=== PATIENT | female | born 1995 | race Caucasian/White ===

== ENCOUNTER 2022-06-28 17:01 | Outpatient (CLI) | payer BC ==
[2022-06-28 18:00] LABS: Appearance,Urine Clear (Clear); Bilirubin,Urine Negative (Negative); Blood,Urine Negative (Negative); Color,Urine Colorless; Glucose,Urine (UA) Negative (Negative); Ketones,Urine Negative (Negative); Leukocyte Esterase,Urine Negative (Negative); Nitrite,Urine Negative (Negative); PH, Urine 6.5 (5.0-8.0); Protein,Urine Negative (Negative); Specific Gravity,Urine 1.007 (1.001-1.035); Urobilinogen,Urine <2.0 mg/dL (<2.0)
[2022-06-28 18:37] VITALS: BP 119/56; PULSE 82; RESP 17; TEMP 97.5
--- NOTE | 2022-06-29 03:31 | P.MSEPDOC ---
Presenting Problems - Arrival Data Date of Arrival on Unit: 06/28/22 Time of Arrival on Unit: 17:02 Mode of Transport: Ambulatory - Complaint OB-Reason for Admission/Chief Complaint: Pain Comment: Pt presents to triage with c/o lower back pain that started around 0800 this morning. Pt rating pain 10 out of 10 and states it is hard to walk Medical History - Information : 1 Para: 0 Term: 0 : 0 Abortions: Spontaneous or Elective: 0 Number of Living Children: 0 - Gestational Age Gestational Age by PRABHA (wks/days): 29 Weeks and 0 Days Review of Systems - Review of Systems Constitutional: No problems Breast: No problems ENT: No problems Cardiovascular: No problems Respiratory: No problems Gastrointestinal: No problems Genitourinary: No problems Musculoskeletal: No problems Neurological: No problems Skin: No problems Vital Signs - Temperature Temperature: 97.5 F Temperature Source: Temporal Artery Scan - Pulse Pulse Oximetery Pulse Rate: 82 Pulse Assessment Method: Pulse Oximetry - Respirations Respiratory Rate: 17 Oxygen Delivery Method: Room Air O2 Sat by Pulse Oximetry: 98 - Blood Pressure Right Arm Blood Pressure: 119/56 Blood Pressure Mean: 77 Blood Pressure Source: Automatic Cuff Medical Screen Scoring - Cervical Exam Membranes: Intact - Assessment - Baby A Baseline FHR: 150 Heart Rate - NICHD Category: Category I (Normal) NST: Reactive Physician Notification - Physician Notified Physician Notified Date: 06/28/22 Physician Notified Time: 17:24 Physician: Lucas Oneal - Notification Comment Comment: At 1724, Dr. Oneal on unit with order to send a urinalysis on pt. RN to call Dr. Oneal with results. At 1817, RN reported urinalysis results. Per Dr. Oneal RN to discharge pt home with instructions to take tylenol as needed and to follow up with Dr. Kyle as scheduled. Maternal Triage Index - Maternal Triage Index Presenting for scheduled procedure w/no complaint: No - Stat/Priority 1 Stat Priority 1: No - Urgent/Priority 2 Urgent Priority 2: No - Prompt/Priority 3 Prompt Priority 3: No - Non-Urgent/Priority 4 Non-Urgent Priority 4: Yes Criteria Met for Priority 4: Pt presents to triage with c/o lower back pain that started around 0800 this morning. Pt rating pain 10 out of 10 and states it is hard to walk Disposition - Disposition OB Disposition: Discharge to home, Written follow up instructions reviewed Discharge Date: 06/28/22 Discharge Time: 18:23 I agree with the RN Medical Screening Exam: Yes Case reviewed; plan agreed upon as documented in EMR&OBIX.: Yes Diagnosis: RELATED CONDITIONS, UNSPECIFIED, THIRD TRIMESTER
== END 2022-06-28 18:23 | disposition home or self-care (01) ==
LOC: FBPOP 17:01
PROVIDERS: ATTEND Obstetrics & Gynecology
DX: O26.93 Pregnancy related conditions, unspecified, third trimester (principal); Z3A.29 29 weeks gestation of pregnancy; Z91.09 Other allergy status, other than to drugs and biological substances; Z91.048 Other nonmedicinal substance allergy status
CPT/HCPCS: 59025; 81003; 99213

== ENCOUNTER 2022-08-26 10:29 | Outpatient (CLI) | payer BC ==
[2022-08-26 11:36] VITALS: BP 136/72; PULSE 103; RESP 18; TEMP 98.1
--- NOTE | 2022-08-27 07:19 | P.MSEPDOC ---
Presenting Problems - Arrival Data Date of Arrival on Unit: 08/26/22 Time of Arrival on Unit: 10:29 Mode of Transport: Ambulatory - Complaint OB-Reason for Admission/Chief Complaint: Decreased Movement Comment: pt presents to triage for decreased movement Medical History - Information : 1 Para: 0 Term: 0 : 0 Abortions: Spontaneous or Elective: 0 Number of Living Children: 0 - Gestational Age Gestational Age by PRABHA (wks/days): 37 Weeks and 3 Days - History Comment: pt reports she has asymetrical growth restriction with , has another ultrasound on Monday, has weekly NST's performed Review of Systems - Review of Systems Constitutional: No problems Breast: No problems ENT: No problems Cardiovascular: No problems Respiratory: No problems Gastrointestinal: No problems Genitourinary: No problems Musculoskeletal: No problems Neurological: No problems Skin: No problems Vital Signs - Temperature Temperature: 98.1 F Temperature Source: Temporal Artery Scan - Pulse Right Brachial Pulse Rate: 103 - Respirations Respiratory Rate: 18 Oxygen Delivery Method: Room Air O2 Sat by Pulse Oximetry: 100 - Blood Pressure Right Arm Blood Pressure: 136/72 Blood Pressure Mean: 93 Blood Pressure Source: Automatic Cuff Medical Screen Scoring - Uterine Contractions Intensity: Mild Resting: Soft to palpation - Assessment - Baby A Baseline FHR: 140 Heart Rate - NICHD Category: Category I (Normal) NST: Reactive Physician Notification - Physician Notified Physician Notified Date: 08/26/22 Physician Notified Time: 11:08 Physician: Lucas Oneal Order Received: Yes - Notification Comment Comment: reactive nst, pt feeling movement since arrival in triage, has scheduled appt on 09/[address] Kyle Maternal Triage Index - Maternal Triage Index Presenting for scheduled procedure w/no complaint: No - Stat/Priority 1 Stat Priority 1: No - Urgent/Priority 2 Urgent Priority 2: No - Prompt/Priority 3 Prompt Priority 3: Yes Criteria Met for Priority 3: pt reports she has asymetrical growth restriction with , has another ultrasound on Monday, has weekly NST's performed - Non-Urgent/Priority 4 Non-Urgent Priority 4: Yes Criteria Met for Priority 4: na Disposition - Disposition OB Disposition: Triage, Discharge to home, Written follow up instructions reviewed Discharge Date: 08/26/22 Discharge Time: 11:25 I agree with the RN Medical Screening Exam: Yes Case reviewed; plan agreed upon as documented in EMR&OBIX.: Yes Diagnosis: DECREASED MOVEMENTS, THIRD TRIMESTER, FETUS 1 (Patient presented to labor and delivery with complaints of decreased movement. heart tones are category 1 without decelerations. Patient reports that she is now having active movement. At this time there is no evidence of maternal or compromise and therefore discharge home follow up with Dr. Braun as scheduled)
== END 2022-08-26 11:25 | disposition home or self-care (01) ==
LOC: FBPOP 10:29
PROVIDERS: ATTEND Obstetrics & Gynecology
DX: O36.8131 Decreased fetal movements, third trimester, fetus 1 (principal); Z3A.37 37 weeks gestation of pregnancy; Z91.048 Other nonmedicinal substance allergy status; Z91.09 Other allergy status, other than to drugs and biological substances
CPT/HCPCS: 59025; 99213

== ENCOUNTER 2022-09-11 17:00 | Inpatient (IN) | payer BC ==
[2022-09-12] MEDS ORDERED: TRANEXAMIC ACID IN NACL,ISO-OS 1,000 MG in EMPTY BAG 1 BAG IV PRN (06:14)
[2022-09-12] MEDS ORDERED: miSOPROStoL 200 MCG TAB PO PRN (06:14)
[2022-09-12] MEDS ORDERED: CARBOPROST TROMETHAMINE 250 MCG/ML 1 ML AMP IM PRN (06:14)
[2022-09-12] MEDS ORDERED: LIDOCAINE 0.5% (PF) 5 MG/ML (50 ML SDV) SQ PRN (06:14)
[2022-09-12] MEDS ORDERED: OXYTOCIN 30 UNITS/500 ML NS 30 UNIT in SALINE 1 500ML.BAG IV SCH ×2 (06:14→19:30)
[2022-09-12] MEDS ORDERED: METHYLERGONOVINE 0.2 MG/ML 1 ML AMP IM PRN (06:14)
[2022-09-12] MEDS ORDERED: OXYTOCIN 10 UNIT/ML 1 ML VIAL IM PRN (06:14)
[2022-09-12] MEDS ORDERED: TERBUTALINE 1 MG/ML VIAL SQ PRN (06:14)
[2022-09-12] MEDS: LACTATED RINGERS 1,000 ML IV SCH ×3 (06:30→13:55)
[2022-09-12 06:57] LABS: Basophils % (A) 0 %; Eosinophils # (A) 0.1 k/uL (0-0.7); Eosinophils % (A) 1 %; HCT 32.6 % (34.0-46.0); HGB 10.6 gm/dL (11.4-16.0); Lymphocytes # (A) 1.6 k/uL (1.0-4.8); Lymphocytes % (A) 17 %; MCH 26.5 pg (25.0-35.0); MCHC 32.6 g/dL (31.0-37.0); MCV 81.3 fL (80.0-100.0); Mean Platelet Volume 9.3; Monocytes # (A) 0.6 k/uL (0-1.0); Monocytes % (A) 6 %; Neutrophils # (A) 7.1 k/uL (1.3-7.7); Neutrophils % (A) 74 %; Platelet Count 155 k/uL (150-450); RBC 4.01 m/uL (3.80-5.40); WBC 9.5 k/uL (3.8-10.6)
--- NOTE | 2022-09-12 08:38 | P.HPOB ---
History of Present Illness H&P Date: 09/12/22 Chief Complaint: induction of labor 26-year-old at 38 and 6 presents for induction of labor. Her cervix is 1 cm dilated, 80% effaced, -2 station. She is troy irregularly. heart tones 135 with moderate variability and reactive. During the the had been Located by intrauterine growth restriction. Review of Systems All systems: negative Constitutional: Denies chills, Denies fever Eyes: denies blurred vision, denies pain Ears, nose, mouth and throat: Denies headache, Denies sore throat Cardiovascular: Denies chest pain, Denies shortness of breath Respiratory: Denies cough Gastrointestinal: Denies abdominal pain, Denies diarrhea, Denies nausea, Denies vomiting Genitourinary: Denies dysuria, Denies hematuria Musculoskeletal: Denies myalgias Integumentary: Denies pruritus, Denies rash Neurological: Denies numbness, Denies weakness Psychiatric: Denies anxiety, Denies depression Endocrine: Denies fatigue, Denies weight change Past Medical History Past Medical History: No Reported History History of Any Multi-Drug Resistant Organisms: None Reported Past Anesthesia/Blood Transfusion Reactions: No Reported Reaction Past Psychological History: No Psychological Hx Reported Smoking Status: Never smoker Medications and Allergies Home Medications Medication Instructions Recorded Confirmed Type Vit No.179/Iron/Folic 1 each PO 09/12/22 History [ Tablet] Allergies Allergy/AdvReac Type Severity Reaction Status Date / Time dog dander Allergy Mild Wheezing Verified 09/12/22 06:08 nickel Allergy Mild Rash/Hives Verified 09/12/22 06:08 Exam Osteopathic Statement: *. No significant issues noted on an osteopathic structural exam other than those noted in the History and Physical/Consult. Vital Signs Temp Pulse Resp BP Pulse Ox 09/12/22 06:04 97.4 F L 97 15 134/71 98 Intake and Output 09/11/22 09/12/22 09/12/22 22:59 06:59 14:59 Other: Weight 83.915 kg Heart: Regular rate and rhythm Lungs: Clear to auscultation bilaterally Abdomen: Soft, nontender Extremities: Negative Homans sign Results Result Diagrams: 09/12/22 06:42 Abnormal Lab Results - Last 24 Hours (Table) 09/12/22 Range/Units 06:42 Hgb 10.6 L (11.4-16.0) gm/dL Hct 32.6 L (34.0-46.0) % Assessment and Plan (1) Encounter for induction of labor Current Visit: Yes Status: Acute Code(s): Z34.90 - ENCNTR FOR SUPRVSN OF NORMAL , UNSP, UNSP TRIMESTER SNOMED Code(s): 958590632 Plan: 1. Induction of labor with amniotomy and Pitocin 2. Anticipate normal vaginal delivery.
[2022-09-12] MEDS ORDERED: ROPIVACAINE 5 MG/ML 20 ML AMPULE ONE (13:05)
[2022-09-12] MEDS ORDERED: SODIUM CHLORIDE 0.9% 100 ML BAG ONE (13:05)
[2022-09-12] MEDS ORDERED: fentaNYL (PF) 50 MCG/ML 5 ML AMP ONE (13:05)
[2022-09-12] MEDS ORDERED: PHENYLEPHRINE-0.9% NACL SYG 1,000 MCG/10 ML SYRINGE ONE (13:05)
[2022-09-12 19:14] VITALS: RESP 16
[2022-09-12] MEDS ORDERED: diphenhydrAMINE 25 MG CAP PO PRN (19:22)
[2022-09-12] MEDS ORDERED: ACETAMINOPHEN TAB 325 MG TAB PO PRN (19:22)
[2022-09-12] MEDS ORDERED: diphenhydrAMINE 50 MG/ML 1 ML VIAL IVP PRN ×2 (19:22)
[2022-09-12] MEDS ORDERED: BENZOCAINE/MENTHOL SPRAY 1 GM/SPRAY AEROSOL TOPICAL PRN (19:22)
[2022-09-12] MEDS ORDERED: ZOLPIDEM 5 MG TAB PO PRN (19:22)
[2022-09-12] MEDS ORDERED: diphenhydrAMINE 50 MG CAP PO PRN (19:22)
[2022-09-12] MEDS ORDERED: SIMETHICONE 80 MG CHEWABLE PO PRN (19:22)
[2022-09-12] MEDS ORDERED: HYDROCORTISONE 2.5% RECTAL CREAM 30 GM TUBE RECTAL PRN (19:22)
[2022-09-12] MEDS ORDERED: LANOLIN CREAM 5 GM TUBE TOPICAL PRN (19:22)
--- NOTE | 2022-09-12 19:26 | P.PROBDLV ---
Vaginal Delivery Note - . Vaginal Delivery Note: 26-year-old at 38 and 6 presents for induction of labor. Her cervix is 1 cm dilated, 80% effaced, -2 station. She is troy irregularly. heart tones 135 with moderate variability and reactive. The had been Complicated by intrauterine growth restriction though the most recent US showed 25%ile. Pitocin augmentation was started and amniotomy performed at 7:21 AM and clear fluid noted. When she was uncomfortable she first tried nitrous oxide which didn't work for her very well and then she got an epidural. Her cervix was completely dilated by 170. She pushed, delivered a viable female infant over intact perineum under epidural anesthesia at 1814. Head delivered OA, nuchal cord 1 easily reduced, anterior shoulder delivered gentle downward guidance for by posterior shoulder and rest of body. Nose mouth bulb suctioned, thick and cut, placed mother's abdomen. Apgars 9, 9, weight 7 pounds. Placenta delivered spontaneously, intact with three-vessel cord at 181. Vagina, cervix, and perineum were inspected. Periurethral laceration and a first-degree midline laceration repaired with 3-0 Vicryl. Estimated blood loss 100 mL. Mother and baby in stable condition.
[2022-09-12] MEDS: SENNOSIDES-DOCUSATE SODIUM 1 EACH TAB PO SCH (20:09)
[2022-09-12] MEDS: IBUPROFEN 600 MG TAB PO PRN (21:12)
[2022-09-13] MEDS: IBUPROFEN 600 MG TAB PO PRN ×2 (04:15→15:35)
[2022-09-13 06:41] LABS: Basophils % (A) 0 %; Eosinophils # (A) 0.1 k/uL (0-0.7); Eosinophils % (A) 1 %; HCT 26.8 % (34.0-46.0); Lymphocytes # (A) 1.6 k/uL (1.0-4.8); Lymphocytes % (A) 13 %; MCH 26.7 pg (25.0-35.0); MCHC 32.8 g/dL (31.0-37.0); MCV 81.4 fL (80.0-100.0); Mean Platelet Volume 9.9; Monocytes # (A) 0.7 k/uL (0-1.0); Monocytes % (A) 6 %; Neutrophils # (A) 10.2 k/uL (1.3-7.7); Neutrophils % (A) 80 %; Platelet Count 133 k/uL (150-450); RBC 3.29 m/uL (3.80-5.40); RDW 14.1 % (11.5-15.5); WBC 12.8 k/uL (3.8-10.6)
[2022-09-13 06:49] LABS: HGB 8.8 gm/dL (11.4-16.0)
--- NOTE | 2022-09-13 08:14 | P.DS ---
Providers Date of admission: 09/12/22 05:54 Expected date of discharge: 09/13/22 Attending physician: Maria Elena Kyle Primary care physician: Stated None - Discharge Diagnosis(es) (1) Encounter for induction of labor Current Visit: Yes Status: Resolved (2) Normal vaginal delivery Current Visit: Yes Status: Acute Hospital Course: Patient presented for induction of labor. She underwent a normal vaginal delivery. course was uneventful. She denies nausea, vomiting, chest pain, shortness of breath or any calf pain. Her lochia is minimal and she is involuting voiding without difficulty. Patient will be discharged home day #1 in stable condition to follow-up with me in 3 weeks. Plan - Discharge Summary New Discharge Prescriptions: New RX: Ibuprofen [Motrin] 600 mg PO Q6HR PRN #30 tab PRN Reason: Mild Pain (Scale 1 To 3) No Action Vit No.179/Iron/Folic [ Tablet] 1 each PO Discharge Medication List Vit No.179/Iron/Folic [ Tablet] 1 each PO 09/12/22 [History] RX: Ibuprofen [Motrin] 600 mg PO Q6HR PRN #30 tab 09/13/22 [Rx] Follow up Appointment(s)/Referral(s): Maria Elena Kyle DO [Doctor of Osteopathic Medicine] - 10/26/22 3:45 pm Discharge Disposition: HOME SELF-CARE
[2022-09-13] MEDS: SENNOSIDES-DOCUSATE SODIUM 1 EACH TAB PO SCH (08:17)
[2022-09-13 15:25] VITALS: BP 109/70; PULSE 94; TEMP 98.3
== END 2022-09-13 19:55 | disposition home or self-care (01) | DRG 807 ==
LOC: 4FBP 09-12 05:54
PROVIDERS: ADMIT Obstetrics & Gynecology; ATTEND Obstetrics & Gynecology
PROC: 10E0XZZ Delivery of Products of Conception, External Approach (ICD-10-PCS; principal; 2022-09-12)
PROC: 0HQ9XZZ Repair Perineum Skin, External Approach (ICD-10-PCS; 2022-09-12)
PROC: 10907ZC Drainage of Amniotic Fluid, Therapeutic from Products of Conception, Via Natural or Artificial Opening (ICD-10-PCS; 2022-09-12)
PROC: 3E033VJ Introduction of Other Hormone into Peripheral Vein, Percutaneous Approach (ICD-10-PCS; 2022-09-12)
DX: O36.5930 Maternal care for other known or suspected poor fetal growth, third trimester, not applicable or unspecified (principal); Z37.0 Single live birth; O69.81X0 Labor and delivery complicated by cord around neck, without compression, not applicable or unspecified; O70.0 First degree perineal laceration during delivery; J30.81 Allergic rhinitis due to animal (cat) (dog) hair and dander; O99.892 Other specified diseases and conditions complicating childbirth; Z3A.39 39 weeks gestation of pregnancy
CPT/HCPCS: 85025; 86850; 86900; 86901